=== PATIENT | male | born 1960 | race Caucasian/White ===

== ENCOUNTER → 2018-06-02 10:38 | Outpatient (CLI) | payer OTHER, SELFPAY ==
[2018-06-02 11:34] LABS: Hematocrit 43.3 % (40-54); Hemoglobin 14.6 g/dl (13.0-16.5); Mean Corp Hgb Conc 33.7 g/gl (32-36); Mean Corpuscular Volume 91.9 fL (80-94); Mean Platelet Vol. 10.4 fl (6.2-12.0); Platelet Count 217 K/mm3 (150-450); RBC Distribution Width SD 43.5 fl (35.1-43.9); Red Blood Count 4.71 M/mm3 (4.6-6.2); White Blood Count 5.4 K/mm3 (4.4-11.0)
[2018-06-02 11:38] LABS: Scan Indicated on CBC? Y/N NO
[2018-06-02 12:28] LABS: Anion Gap 8 (5-15); BUN 12 mg/dL (7-18); BUN/Creat Ratio 11.7 RATIO (10-20); Calcium,Total 8.7 mg/dL (8.5-10.1); Chloride 107 mmol/L (98-107); Creatinine, Serum 1.03 mg/dL (0.70-1.30); EST Glomerular Filtration Rate 79 mL/min (>60); Est Glom Filt Rate - Afr Amer 96 mL/min (>60); Glucose 104 mg/dL (74-106); Potassium 3.9 mmol/L (3.5-5.1); Sodium Level 139 mmol/L (136-145)
== END ==
PROVIDERS: Family Provider Family Medicine; PCP Family Medicine; Visit Provider Physician Assistant
DX: Z01.810 Encounter for preprocedural cardiovascular examination (principal); Z01.818 Encounter for other preprocedural examination
CPT/HCPCS: 36415; 80048; 85027; 93005

== ENCOUNTER → 2018-09-25 15:37 | Outpatient (CLI) | payer OTHER, SELFPAY ==
--- NOTE | 2018-09-25 15:44 | VDLE_ITS ---
Reason For Study: LEG PAIN RIGHT GSV is normal. CFV is compressible, spontaneous, phasic, competent and demonstrates normal augmentation. FV is compressible, spontaneous, phasic, competent and demonstrates normal augmentation. POP V is compressible, spontaneous, phasic, competent and demonstrates normal augmentation. T/P Trunk is compressible. PTV is compressible. RT PerV is compressible. Procedure Exam performed in department. A preliminary report was called and/or faxed to Dr. South. Interpretation Summary Deep veins of the right lower extremity are patent and compressible segmentally. There is no evidence of right lower extremity deep vein thrombosis. Valvular competence appears intact within the proximal deep venous system on the right . The right greater saphenous vein appears patent and compressible segmentally. Ordering Physician: Lambert South Referring Physician: Lambert South Performed By: Trish Persaud RVT
== END ==
PROVIDERS: Family Provider Family Medicine; PCP Family Medicine; Referring Provider Orthopaedic Surgery; Visit Provider Orthopaedic Surgery
DX: M79.604 Pain in right leg (principal); S83.241D Other tear of medial meniscus, current injury, right knee, subsequent encounter
CPT/HCPCS: 93971

== ENCOUNTER → 2019-01-13 08:31 | Outpatient (CLI) | payer OTHER, SELFPAY ==
--- NOTE | 2019-01-13 08:45 | RAD_ITS ---
PROCEDURE: Fluoroscopic guided Hip Injection DATE: January 13, 2019. INDICATION: Male, 58 years old. Chronic right hip pain. PHYSICIAN: Erickson Morris M.D. MEDICATIONS: 6 mg of betamethasone and 3 cc of 1% lidocaine. 2% lidocaine administered subcutaneously for local anesthesia. ACCESS SITE: Right hip. NEEDLE: 22-gauge spinal needle. FLUOROSCOPY TIME (if supplied): (0:28) minutes/seconds. A single image was obtained. FINDINGS: The risks, benefits, and alternatives to the procedure were explained to the patient. The specific risks of bleeding, infection, and neurovascular injury were detailed and accepted. Witnessed informed consent was obtained. A 22-gauge spinal needle was positioned under radiographic fluoroscopic localization. Approximately 2 cc of Isovue-300 instilled for localization purposes. Medication was then injected. The patient tolerated the procedure well without any immediate complications. RAD/Inj/Asp Rick Jt Should/Hip/Knee IMPRESSION: 1. Successful fluoroscopic guided hip injection. Electronically Signed: Erickson Morris, at 10:35 EDT , Service support ,
== END ==
PROVIDERS: Family Provider Family Medicine; PCP Family Medicine; Referring Provider Orthopaedic Surgery; Visit Provider Orthopaedic Surgery
DX: M16.11 Unilateral primary osteoarthritis, right hip (principal)
CPT/HCPCS: 20610; 77002; Q9967; J0702

== ENCOUNTER → 2019-07-22 09:42 | Outpatient (CLI) | payer OTHER, SELFPAY ==
--- NOTE | 2019-07-22 09:46 | RAD_ITS ---
STUDY: X-RAY - LUMBAR SPINE REASON FOR EXAM: Male, 58 years old. Leg pain. TECHNIQUE: 3 view(s) of the lumbar spine were obtained. COMPARISON: None FINDINGS: Normal lumbar lordosis. There is no substantial scoliosis. There is a normal alignment of the vertebrae. There is multilevel endplate spondylosis of the lumbar vertebrae. There is degenerative disc disease with disc space narrowing at L4-L5. The soft tissue structures are unremarkable. RAD/Lumbar Spine 2 or 3 Views IMPRESSION: Degenerative changes, most pronounced at L4-L5. Electronically Signed: Lahta Roblero MD at 17:30 EDT Tel , Service support ,
== END ==
PROVIDERS: Family Provider Family Medicine; PCP Family Medicine; Referring Provider Anesthesiology Pain Medicine; Visit Provider Anesthesiology Pain Medicine
DX: M79.604 Pain in right leg (principal)
CPT/HCPCS: 72100

== ENCOUNTER → 2019-11-11 14:30 | Outpatient (CLI) | payer OTHER, SELFPAY ==
--- NOTE | 2019-11-11 | IMM_PTH ---
PATIENT: KYA PERRY LOC: [facility] U#:[id number] AGE/SX: 64/M ROOM: RE11/11/[address]: Dr. Sid Ann MD : 1960 BED: DIS: SPEC #: [id number] RECD: 11/12/19 12:58 STATUS: NATALYA REZaida #: [id number] SANDRA: 11/11/19 00:[address]: Sid Ann DEPT: IMMUNOHISTOCHEMISTRY RECD BY: Ana Pierson Tissues: A - Stomach, NOS Procedures: H Pylori (initial) PHYSICIAN & INSTITUTION [place] [id number] SPECIMEN INFORMATION: Tissue Source: A - Antral biopsy Clinical Info: Z86.010, K22.70 Specimen Number: [id number] CPT code: 50034 METHODOLOGY: Deparaffinized sections of prefer/formalin-fixed tissue or PAP/DQ stained slides are incubated with monoclonal/polyclonal antibodies/oligonucleotide probes. Localization is made via biotin free immunoperoxidase method. Appropriate controls are performed and reacted as expected. Results on target cell population are indicated in the following table: RESULTS: ANTIBODY / CLONE RESULT Block A H Pylori (polyclonal) negative These tests were developed and their performance characteristics determined by [facility]. They may not have been cleared or approved by the U.S. Food and Drug Administration. The FDA has determined that such clearance or approval is not necessary. INTERPRETATION: A. Antral biopsy: Negative for Helicobacter pylori organisms. LIZZETH:cesar 11/15/19
--- NOTE | 2019-11-11 | EGD_PTH ---
PATIENT: KYA PERRY LOC: [facility] #:[id number] AGE/SX: 64/M ROOM: RE11/11/[address]: Dr. Sid Ann MD : 1960 BED: DIS: SPEC #: [id number] RECD: 11/11/19 14:08 STATUS: NATALYA ABBIE #: [id number] SANDRA: 11/11/19 00:[address]: Sid Ann DEPT: SURGICAL PATHOLOGY RECD BY: Gilbert Barrientos Tissues: A - Gastric mucous membrane B - Gastric mucous membrane C - Gastric mucous membrane D - Esophageal mucous membrane E - Transverse colon Procedures: Special Stain Group II Surgery Specimen Level IV Alcian Blue/PAS (control) HEADER OPERATION: EGD with biopsy and colonoscopy with snare PRE-OP DIAGNOSIS: Z86.010, K22.70 TISSUE SUBMITTED: A - Antral biopsy for H/H, B - Gastric polyp, C - GE junction biopsy, D - Mid esophageal biopsy, E - Transverse colon polyp MICROSCOPIC DIAGNOSIS A. Antral biopsy: Mild gastritis. See microscopic description and comment. B. Gastric polyp, biopsy: Fundic gland polyp. C. GE junction, biopsy: Fragments of gastroesophageal mucosa with moderate chronic inflammation. Focal changes suspicious for minimal intestinal metaplasia (goblet cell metaplasia). Negative for dysplasia. See comment. D. Mid esophageal biopsy: A fragment of squamous epithelium, no pathologic diagnosis. E. Transverse colon polyp, biopsy: Tubular adenoma LIZZETH:cesar 11/15/19 COMMENT A. The results of immunohistochemistry for Helicobacter pylori will be reported separately ([id number]). C. Alcian blue/PAS stain with matched control is used in the evaluation of the specimen. MICROSCOPIC DESCRIPTION Slides are reviewed. A. The specimen shows fragments of gastric mucosa with chronic inflammatory cell infiltrates in the lamina propria consisting of lymphocytes and plasma cells, consistent with mild chronic gastritis. GROSS DESCRIPTION A - Received in fixative is one container labeled with the patient's name and designated antral biopsy. The specimen consists of one irregular fragment of light galarza soft tissue that measures 0.4 x 0.3 x 0.1 cm. The specimen is totally submitted in one cassette. B - Received in fixative is one container labeled with the patient's name and designated gastric polyp. The specimen consists of one irregular fragment of light galarza soft tissue that measures 0.3 x 0.3 x 0.1 cm. The specimen is totally submitted in one cassette. C - Received in fixative is one container labeled with the patient's name and designated GE junction biopsy. The specimen consists of multiple irregular fragments of light galarza soft tissue that in aggregate measure 0.5 x 0.5 x 0.1 cm. The specimen is totally submitted in one cassette. D - Received in fixative is one container labeled with the patient's name and designated mid esophageal biopsy. The specimen consists of one irregular fragment of light galarza soft tissue that measures 0.4 x 0.4 x 0.1 cm. The specimen is totally submitted in one cassette. E - Received in fixative is one container labeled with the patient's name and designated transverse colon polyp. The specimen consists of one minute fragment of light galarza soft tissue that measures 0.2 x 0.1 x 0.1 cm. The specimen is totally submitted in one cassette. / SJ:rg 11/12/19 TC:1 CPT: 09916 x5, 41093
== END ==
LOC: LABSPEC 14:33
PROVIDERS: Referring Provider Surgery; Visit Provider Surgery
DX: K22.70 Barrett's esophagus without dysplasia (principal); Z86.010 Personal history of colon polyps
CPT/HCPCS: 88305; 88313; 88342

== ENCOUNTER → 2020-10-18 08:30 | Outpatient (CLI) | payer OTHER, SELFPAY ==
--- NOTE | 2020-10-18 08:33 | NM_ITS ---
CLINICAL: 59-year-old male with reported history of chronic right knee pain, post surgical intervention with suspected potential CRPS-reflex sympathetic dystrophy. LIMITED 99m Tc MDP THREE PHASE BONE SCINTIGRAPHY COMPARISON: None available FINDINGS: Following the intravenous administration of 26.3 mCi of 99m Tc MDP, three-phase bone acquisitions of the knee articulations reveal: 1. The flow and immediate static blood pool acquisitions demonstrate symmetric-normal arterial and venous phase distribution of the radiopharmaceutical to the bilateral knee articulations.. 2. Delayed images depict increased tracer concentration observed in the medial tibial compartments of both knees, patellofemoral compartment of the left knee.. 3. The remaining limited skeletal structures are scintigraphically unremarkable. NM/Bone Scan Three Phase IMPRESSION: 1. The increase in radiopharmaceutical concentration defined in the bilateral knee articulations on late projections is most consistent with degenerative arthritis. 2. There is no definitive typical scintigraphic evidence of reflex sympathetic dystrophy-CRPS involving the visualized right lower extremity on the current examination. Electronically Signed: Sid Smith DO at 22:53 EST Tel , Service support ,
== END ==
PROVIDERS: PCP Orthopaedic Surgery; Referring Provider Orthopaedic Surgery; Visit Provider Orthopaedic Surgery
DX: G90.50 Complex regional pain syndrome I, unspecified (principal); S83.241A Other tear of medial meniscus, current injury, right knee, initial encounter
CPT/HCPCS: 78315

== ENCOUNTER 2021-07-23 12:32 | Day surgery (SDC) | payer OTHER, SELFPAY ==
[2021-07-23 13:03] VITALS: BP 119/97; PULSE 82; RESP 16; TEMP 36.6; O2SAT 96; BMI 36.8
[2021-07-23] MEDS: Lactated Ringers 1,000 ML 100 ML IV (13:09)
[2021-07-23] MEDS: Cefazolin 2 GM in 0.9% Normal Saline 100 ML IV (13:58)
[2021-07-23] MEDS: Lidocaine 2% (20 ml mdv) 20 ML Vial (14:14)
[2021-07-23] MEDS: Bupivacaine 0.25% 30 ML Vial (14:14)
--- NOTE | 2021-07-23 14:20 | RAD_ITS ---
PROCEDURE: Intraoperative fluoroscopy DATE OF EXAMINATION: 07/30/2021 INDICATION: Male, 60 years old, spinal cord significant displacement. FLUOROSCOPY TIME (if supplied): (3:07) minutes/seconds. NUMBER OF FLUOROSCOPIC IMAGES: 9 images. TOTAL FLUOROSCOPY DOSE FOR THE PROCEDURE: 74.42 mGy TECHNIQUE: 9 spot fluoroscopic images were obtained intraoperatively demonstrating insertion of the spinal cord stimulator at the level of the thoracolumbar junction and final images demonstrate the spinal cord stimulator leads at the level of the superior endplate of T9 to the inferior endplate of the T10 vertebral body. Degenerative bone changes are visualized, subtle decreased anterior height of the T8 vertebral body is seen. No radiologist was present for the procedure, please refer to operative report for details. RAD/Lumbar Spine 2 or 3 Views IMPRESSION: Please refer to operative report for details. Electronically Signed: Lars Pitt MD at 15:03 EDT Tel , Service support ,
[2021-07-23 15:40] VITALS: BP 106/71; BP 119/97; PULSE 85; RESP 16; TEMP 36.6; O2SAT 94
[2021-07-23 15:45] VITALS: BP 103/67; BP 119/97; PULSE 82; RESP 16; O2SAT 92
[2021-07-23 15:55] VITALS: BP 107/78; BP 119/97; PULSE 73; RESP 16; O2SAT 92
[2021-07-23 16:00] VITALS: BP 108/80; BP 119/97; PULSE 69; RESP 16; TEMP 36.1; O2SAT 92
--- NOTE | 2021-07-23 16:05 | PCM.OPRPT ---
Report of Operation Date of Procedure: 07/23/21 Pre-Operative Diagnosis: Complex regional pain syndrome of the lower extremities, reflex sympathetic dystrophy of the lower extremities Post-Operative Diagnosis: Complex regional pain syndrome of the lower extremities, reflex sympathetic dystrophy of the lower extremities Description of Surgical Findings:: PROCEDURES: 1. Spinal cord stimulator thoracolumbar leads placement x2 #2 spinal cord stimulator Medtronic intellus generator placement #3 spinal cord stimulator generator pocket creation at the left gluteal region #4 spinal cord stimulator complex programming 5-intraoperative fluoroscopic interpretation ANESTHESIA: MAC COMPLICATIONS: None BLOOD LOSS: Minimal Implanted device: Spinal cord stimulator lead [id number] lot number [id number], lead #[id number] lot number [id number] Medtronic spinal cord stimulator generator intellus serial number [id number] PROCEDURE IN DETAIL: History and physical today was reviewed. Risks and benefits of procedure explained. The patient understood, agreed to procedure, informed consent was obtained. IV inserted per routine protocol. The patient was taken to the operating room, placed in the prone position with a pillow positioned underneath the abdomen. A 2 g of Ancef IV piggyback was infused per anesthesia. The lower back and left gluteal area was prepped and draped in a sterile fashion using iodine x3 and Ioban was placed. The C-arm was brought in position for AP view at the L2-3 vertebral bodies under direct visualization fluoroscopy on a true AP view the L2-3 interlaminar space was identified skin and subcutaneous tissue and size approximately 10 cc of a mix of 2% lidocaine and 0.25% Marcaine using a 25-gauge regular needle followed by a 25-gauge 3-1/2 inch spinal needle towards the interlaminar space at L2-3, the skin and subcutaneous tissue were then anesthetized and using an 11-gauge blade was then taken down to the skin and subcutaneous tissue using a 14-gauge 3-1/2 inch Touhy needle provided by the [employer] kit the needle was passed through the skin towards the interlaminar space at L2-3 and a paramedian approach the needle was then advanced under direct visualization fluoroscopy towards the interlaminar space at L2-3 [id number] technique was then carried to air towards the interlaminar space at L2-3 once the tip of the needle was in the epidural space and loss of resistance was encountered to air and after confirmation of AP as well as oblique view of the spinal cord stimulator lead was then advanced under direct visualization fluoroscopy to be at the tip of the lead at T8 and the bottom of the lead around mid T10 after confirmation of AP as well as lateral view to confirm correct placement of the lead in the posterior compartment of the epidural space the previous procedure was then repeated to a level above at L1-2 interlaminar space the second lead was then inserted under direct visualization with fluoroscopy to be at the mid T8 and mid T10 area the leads were were then connected to the external neurostimulator and patient was then awakened to confirm satisfactory coverage of the painful area once satisfactory coverage was then achieved the stylette of each needle was then removed and the skin and subcutaneous tissue on to the left of the paramedian needles was then taken anesthetized with a total of 10 cc of the previous mixture of 0.25% Marcaine and 2% lidocaine using a 25-gauge regular needle the incision was then taken down through the skin and subcutaneous tissue towards the fascia making sure hemostasis was then maintained via cautery, the spinal cord stimulator leads were then passed through the above incision and secured using the biwing and sutured down with a 2-0 silk to the fascia at that level the spinal cord stimulator leads were then tunneled via a tunneler provided by the [employer] kit towards the previously incised spinal cord stimulator battery at the left gluteal region skin and subcutaneous tissue were anesthetized with approximately 10 cc of a mix of 2% lidocaine and 0.25% Marcaine using a 25 gauge regular needle, skin and subcutaneous tissue was then taken down with the 11-gauge blade hemostasis was maintained with Bovie and direct pressure the incision was then taken down to the fascia and the battery was then secured with the 2-0 silk sutures that were the spinal cord stimulator leads the upper lead was then marked the new until spinal cord stimulator battery was then provided Via [employer] kit the battery was then reattached of the spinal cord stimulator make ensure that the top lead is attached to the top position from 0-7 electrodes and the bottom from 8-15 electrodes once impedance was then checked to be in the proper average number the intellus battery was then inserted into the pocket and impedance with when checked again the pocket was then inspected to confirm hemostasis in place, the intellus battery and tyrx envelope was then secured to the fascia using a 2-0 silk to the upper eyes of the battery confirming an upward writing of the intellus facing posterior, once complete confirmation the battery was then placed in the position and the the mid paramedian and the gluteal incisions were then closed primarily through a 3-0 Vicryl in a running fashion followed by a 4-0 Vicryl to the skin, hemostasis was then maintained during the procedure the skin was then covered with a Steri-Strips and bacitracin patient was then returned into the supine position in a stable condition and returned to recovery in a stable condition patient experienced no signs or symptoms of intrathecal or intravascular injection patient experienced no paresthesia the procedure was completed without any apparent difficulty any complication the patient appeared to tolerate well, motor as well as sensory function was unchanged from prior to the procedure ESTIMATED BLOOD LOSS: Minimal less than 25 mL ASSESSMENT AND PLAN: This is a 60-year-old male with complex regional pain syndrome of the lower extremities, reflex sympathetic dystrophy of the lower extremities status post 1. Spinal cord stimulator thoracolumbar leads placement x2 #2 spinal cord stimulator [employer]tr[employer] intellus generator placement #3 spinal cord stimulator generator pocket creation at the left gluteal region #4 spinal cord stimulator complex programming, 5-intraoperative fluoroscopic interpretation patient will continue his current medications a prescription was provided to the patient Keflex 500 mg 1 p.o. every 8 hours for 7 days postop instruction were given in writing to the patient and his as well as verbally and in writing, patient will follow approximately 1 week for reevaluation
[2021-07-23 16:25] VITALS: BP 119/97
== END 2021-07-23 16:40 | disposition home or self-care (01) ==
LOC: SDC 12:33 → AC 12:33
PROVIDERS: PCP Orthopaedic Surgery; Referring Provider Anesthesiology Pain Medicine; Visit Provider Anesthesiology Pain Medicine
PROC: (CPT 63685; principal; 2021-07-23 14:05)
DX: G90.523 Complex regional pain syndrome I of lower limb, bilateral (principal); K21.9 Gastro-esophageal reflux disease without esophagitis; Z87.891 Personal history of nicotine dependence
CPT/HCPCS: 01936; 63650; 63685; 72100; 76000; 87426; C1778; C1820; C9803; J7120; J2405